=== PATIENT | female | born 1965 | race Hispanic/Latino ===

== ENCOUNTER 2019-05-22 12:49 | Emergency (ER) | payer OTHER ==
[2019-05-22] MEDS ORDERED: BOOSTRIX IM ONE (12:58)
--- NOTE | 2019-05-22 12:59 | Event Note ---
ED Screening Note Date of service: 05/22/19 Time: 12:55 ED Screening Note: This is a 53 y.o. F. that presents to the ER with laceration to right 1st metacarpal. Patient accidentally caught her right hand on the side of a metal rack while at work. She works at [employer]. She can't recall the last tetanus vaccine. This initial assessment/diagnostic orders/clinical plan/treatment(s) is/are subject to change based on patients health status, clinical progression and re- assessment by fellow clinical providers in the ED. Further treatment and workup at subsequent clinical providers discretion. Patient/guardian urged not to elope from the ED as their condition may be serious if not clinically assessed and managed. Initial orders include: XR Right hand Boostrix
[2019-05-22] MEDS ORDERED: XYLOCAINE 1% MPF 5 mL ONE (13:19)
[2019-05-22] MEDS ORDERED: XYLOCAINE 1% 20 mL ONE (13:20)
[2019-05-22] MEDS ORDERED: NACL 0.9% 1000 ML 1,000 ML ONE (13:37)
[2019-05-22] MEDS ORDERED: ANCEF/NS 1 GM/50 ML 1 GM/50 ML BAG IV ONE (13:58)
--- NOTE | 2019-05-22 14:39 | XRay Report ---
RIGHT HAND 2 VIEWS INDICATION / CLINICAL INFORMATION: Thumb laceration. COMPARISON: None available. FINDINGS: BONES / JOINT(S): No acute fracture or subluxation. No significant arthritis. SOFT TISSUES: I do not identify a radiopaque foreign body. A bandage overlies the hand. ADDITIONAL FINDINGS: None. IMPRESSION: No evidence of fracture or radiopaque foreign body. Signer Name: Chun Whittington MD Signed: 05/22/2019 2:35 PM Workstation Name: [id number]
--- NOTE | 2019-05-22 14:43 | Emergency Department Report ---
ED General Adult HPI - General Chief complaint: Extremity Injury, Upper Stated complaint: RT ARM LAC Time Seen by Provider: 05/22/19 12:55 Source: patient Mode of arrival: Ambulatory Limitations: No Limitations - History of Present Illness Initial comments: This is a 53-year-old female who works at [employer]. Apparently her hand got caught by a falling rack. She sustained a laceration over the dorsum of her right hand. She had a substantial amount of bleeding. She refers some tingling of the tip of her thumb but stated she was able to move it and that it was not completely numb. She reported pain over the affected area. -: Sudden Location: right (hand) Quality: aching Consistency: constant Improves with: none Worsens with: none Associated Symptoms: denies other symptoms - Related Data Previous Rx's Medication Instructions Recorded Last Taken Type HYDROcodone/APAP 5-325 [Franklin 1 each PO Q6HR PRN #7 tablet 05/22/19 Unknown Rx 5/325] cephALEXin [Keflex] 500 mg PO Q8HR #14 cap 05/22/19 Unknown Rx Allergies Allergy/AdvReac Type Severity Reaction Status Date / Time Sulfa (Sulfonamide Allergy Anaphylaxis Verified 05/22/19 13:40 Antibiotics) ED Review of Systems ROS: Stated complaint: RT ARM LAC Other details as noted in HPI Comment: All other systems reviewed and negative ED Past Medical Hx - Past Medical History Additional medical history: crohns. Not on an anticoagulant - Surgical History Additional Surgical History: gastric obstruction repair - Social History Smoking Status: Current Every Day Smoker Substance Use Type: None - Medications Home Medications: Home Medications Medication Instructions Recorded Confirmed Last Taken Type HYDROcodone/APAP 5-325 [Franklin 1 each PO Q6HR PRN #7 tablet 05/22/19 Unknown Rx 5/325] cephALEXin [Keflex] 500 mg PO Q8HR #14 cap 05/22/19 Unknown Rx ED Physical Exam - General Limitations: No Limitations General appearance: alert, anxious - Head Head exam: Present: atraumatic, normocephalic - Eye Eye exam: Present: normal appearance - ENT ENT exam: Present: mucous membranes moist - Neck Neck exam: Present: normal inspection - Respiratory Respiratory exam: Present: normal lung sounds bilaterally. Absent: respiratory distress - Cardiovascular Cardiovascular Exam: Present: regular rate, normal rhythm. Absent: systolic murmur, diastolic murmur, rubs, gallop - GI/Abdominal GI/Abdominal exam: Present: soft, normal bowel sounds. Absent: distended, t enderness - Extremities Exam Extremities exam: Present: other (substantial bright red blood on dressing over the dorsum of the hand.) - Back Exam Back exam: Present: normal inspection - Neurological Exam Neurological exam: Present: alert, oriented X3, CN II-XII intact. Absent: motor sensory deficit (there is sensation and grossly intact vascular exam of the hand.) - Psychiatric Psychiatric exam: Present: normal affect, normal mood - Skin Skin exam: Present: warm, dry, intact, normal color. Absent: rash ED Course Vital Signs 05/22/19 05/22/19 05/22/19 13:20 13:23 13:30 Temperature 98.4 F Pulse Rate 95 H Respiratory 18 Rate Blood Pressure 132/76 123/70 123/70 O2 Sat by Pulse 96 97 96 Oximetry 05/22/19 05/22/19 05/22/19 13:45 14:00 14:15 Temperature Pulse Rate Respiratory Rate Blood Pressure 126/65 118/67 O2 Sat by Pulse 95 98 98 Oximetry - Reevaluation(s) Reevaluation #1: Blood pressure cuff partially inflated was used to examine the laceration. Patient did have substantial bruising over the course of a approximate 6 cm laceration of the dorsum of the thumb into the first web space to the base of the first metacarpal. The wrist is not involved. The laceration is longitudinal. 05/22/19 14:47 Reevaluation #2: I spoke with Dr. José Hallman (vascular surgeon). He agreed that no further vascular intervention was necessary at this time nor additional workup. He will see the patient in the outpatient setting. 05/22/19 15:04 Reevaluation #3: Wound rechecked. There is complete hemostasis and it is well approximated. Patient will be discharged. 05/22/19 15:34 - Laceration /Wound Repair Right Hand Wound Location: upper extremity Wound Length (cm): 6 Wound's Depth, Shape: into muscle (deep laceration. I could not visualize the branch of the radial artery which is an anatomical proximity. There was no carmelo pulsatile bleeding. However there was a lot of bright red blood.) Wound Explored: clean Betadine Prep?: Yes Anesthesia: 1% Lidocaine Suture Size/Type: 4:0 Number of Sutures: 8 Layer Closure?: No Progress: The wound showed a fair amount of oozing. There was no carmelo pulsatile bl eeding. I did achieve excellent hemostasis with a simple interrupted closure. There was no subsequent hematoma. I dressed the wound myself with a bulky hand dressing. ED Medical Decision Making - Lab Data Result diagrams: 05/22/19 14:23 05/22/19 14:23 Laboratory Results - last 24 hr 05/22/19 05/22/19 14:23 14:23 WBC 8.9 RBC 3.91 Hgb 11.4 Hct 33.1 MCV 85 MCH 29 MCHC 35 H RDW 14.0 Plt Count 295 Lymph % (Auto) 23.7 Hawkins % (Auto) 7.4 H Eos % (Auto) 2.2 Baso % (Auto) 0.6 Lymph # 2.1 Hawkins # 0.7 Eos # 0.2 Baso # 0.1 Seg Neutrophils % 66.1 Seg Neutrophils # 5.9 PT 13.0 INR 1.01 APTT 24.5 Critical care attestation.: If time is entered above; I have spent that time in minutes in the direct care of this critically ill patient, excluding procedure time. ED Disposition Clinical Impression: Laceration of hand Qualifiers: Encounter type: initial encounter Foreign body presence: without foreign body Laterality: right Qualified Code(s): S61.411A - Laceration without foreign body of right hand, initial encounter Disposition: - TO HOME OR SELFCARE Is pt being admited?: No Does the pt Need Aspirin: No Condition: Stable Instructions: Laceration (ED) Additional Instructions: Elevate hand in a sling next 24 hours. No work with hand until cleared by follow-up PHYSICIAN. Sutures should be ready for removal in about 10 days. Prescriptions: cephALEXin [Keflex] 500 mg PO Q8HR #14 cap HYDROcodone/APAP 5-325 [Franklin 5/325] 1 each PO Q6HR PRN #7 tablet PRN Reason: Pain Referrals: JOSÉ HALLMAN MD [Staff Physician] - 3-5 Days Time of Disposition: 15:38
[2019-05-22 14:48] LABS: Basophils # (Auto) 0.1 K/mm3 (0.0-0.1); Basophils % (Auto) 0.6 % (0.0-1.8); Eosinophils # (Auto) 0.2 K/mm3 (0.0-0.4); Eosinophils % (Auto) 2.2 % (0.0-4.3); Hematocrit 33.1 % (30.3-42.9); Hemoglobin 11.4 gm/dl (10.1-14.3); Lymphocytes # (Auto) 2.1 K/mm3 (1.2-5.4); Lymphocytes % (Auto) 23.7 % (13.4-35.0); Mean Corpuscular HGB Conc 35 % (30-34); Mean Corpuscular Volume 85 fl (79-97); Monocytes # (Auto) 0.7 K/mm3 (0.0-0.8); Monocytes % (Auto) 7.4 % (0.0-7.3); Platelet Count 295 K/mm3 (140-440); Red Blood Count 3.91 M/mm3 (3.65-5.03)
[2019-05-22] MEDS ORDERED: NORCO 5/325 PO ONE (14:51)
[2019-05-22] MEDS ORDERED: NORCO 5/325 ONE (14:54)
[2019-05-22 15:00] LABS: INR 1.01 (0.87-1.13); Partial Thromboplastin Time 24.5 Sec. (24.2-36.6)
[2019-05-22 15:07] LABS: Alanine Aminotransferase 21 units/L (7-56); Albumin 3.3 g/dL (3.9-5); BUN/Creatinine Ratio 24; Blood Urea Nitrogen 12 mg/dL (7-17); Calcium 8.1 mg/dL (8.4-10.2); Hemolysis Index 57
[2019-05-22 15:27] LABS: Bilirubin,Direct < 0.2 mg/dL (0-0.2)
[2019-05-22 16:11] VITALS: BP 127/76
== END 2019-05-22 16:12 | disposition home or self-care (01) ==
LOC: ED 12:49
DX: S61.411A Laceration without foreign body of right hand, initial encounter (principal); F17.200 Nicotine dependence, unspecified, uncomplicated; Z88.2 Allergy status to sulfonamides; W22.8XXA Striking against or struck by other objects, initial encounter; Y93.89 Activity, other specified; Y92.89 Other specified places as the place of occurrence of the external cause; Y99.8 Other external cause status
CPT/HCPCS: 12002; 36415; 73120; 80048; 80076; 85025; 85610; 85730; 90471; 90715; 99284; J0690; J7030